=== PATIENT | male | born 1945 | race Caucasian/White ===

== ENCOUNTER 2020-04-21 08:25 | Day surgery (SDC) | payer MEDICARE, BC ==
[~2020-04-21] VITALS: Ht 175.3 cm; Wt 138.3 kg
[~2020-04-21 08:25] MED LIST: OXYCODONE HCL5 MG PO; SIMVASTATIN40 MG PO
--- NOTE | 2020-04-21 10:27 | NUR ---
04/21/20 1026 Venus Alexander 1014 PATIENT ARRIVES TO PACU RESTING WITH EYES CLOSED. OPENS EYES AND ANSWERS QUESTIONS WITH VERBAL STIMULI, THEN BACK TO SLEEP. RESP EVEN AND UNLABORED, MASK AT 6 LITERS. PATIENT DENIES PAIN OR NAUSEA. WHEN AWAKE. 1025 PATIENT RESTING WITH EYES CLOSED. OPENS EYES AND ANSWERS QUESTIONS, THEN BACK TO SLEEP. RESP EVEN AND UNLABORED. OXYGEN OFF.
--- NOTE | 2020-04-22 10:17 | OR ---
[facility] [address], [place] [address] Signed DATE OF OPERATION: 04/21/2020 SURGEON: Seamus Graf MD PREOPERATIVE DIAGNOSIS: Carpal tunnel syndrome, right. POSTOPERATIVE DIAGNOSIS: Carpal tunnel syndrome, right. PROCEDURE PERFORMED: Right carpal tunnel release. ANESTHESIA: Revloc block. TOURNIQUET TIME: 20 minutes. BRIEF HISTORY: Magdy is a 75-year-old gentleman with pain, numbness and swelling in his hands. Nerve conduction studies were consistent with carpal tunnel and he wished to proceed. DESCRIPTION OF PROCEDURE: Once consent was obtained, he was taken to the operating room. After adequate anesthesia was placed on the operating room table, all downside pressure points well padded. The right arm was prepped and draped in the standard sterile fashion. The carpal tunnel was approached through a 2 cm incision in the distal wrist crease. We used a slightly larger incision because his hand was swollen and somewhat fibrotic with early Dupuytren's. The incision was carried through skin and subcutaneous tissue and directly down on the transverse carpal ligament. With some difficulty, we were able to mobilize the fibrotic tissue overlying the transverse carpal ligament under loupe magnification. The ligament was released proximally a cm distally to the distal extent. This was done under direct loupe magnification and palpated using the Forest. The wound was copiously irrigated with antibiotic solution, closed with 3-0 nylon and we did inject 10 mL 0.25% Marcaine plain. The wound was dressed with bacitracin, Adaptic, 4 x 8s, and gauze. He tolerated the procedure well. All sponge, needle, and instrument counts were correct. Electronically Signed By: SEAMUS GRAF MD 04/22/20 1017 PATIENT NAME: MAGDY AVILA OPERATIVE REPORT DATE OF : 49 REPORT #: [id number] PHYSICIAN: SEAMUS GRAF MD PCP: NO PRIMARY CARE PHYSICIAN REPORT IS CONFIDENTIAL AND NOT TO BE RELEASED WITHOUT AUTHORIZATION [address] [place], [place] [address] Signed Seamus Graf MD BA/MATTHEWL /[id number] Copies: ~ Electronically Signed By: SEAMUS GRAF MD 04/22/20 1017 PATIENT NAME: MAGDY AVILA OPERATIVE REPORT DATE OF : 49 REPORT #: [id number] PHYSICIAN: SEAMUS GRAF MD PCP: NO PRIMARY CARE PHYSICIAN REPORT IS CONFIDENTIAL AND NOT TO BE RELEASED WITHOUT AUTHORIZATION
== END 2020-04-21 11:00 | disposition home or self-care (01) ==
LOC: DS 08:25
PROVIDERS: Specialist
PROC: 01N50ZZ Release Median Nerve, Open Approach (ICD-10-PCS; principal; 2020-04-21 10:15)
DX: G56.01 Carpal tunnel syndrome, right upper limb (principal); E78.00 Pure hypercholesterolemia, unspecified; Z79.899 Other long term (current) drug therapy
CPT/HCPCS: 01810; J0690; J1100; J1885; J2250; J2405; J2704; J2765; J3010; J7121